=== PATIENT | female | born 1960 | race African-American/Black ===

== ENCOUNTER → 2017-05-19 | Day surgery (SDC) | payer OTHER ==
[~2017-05-19] MED LIST: HYDROmorphone 2 MG/ML VIAL IV; LIDOCAINE 1% PF 2 ML VIAL. ID; LIDOCAINE 2% PF Vial for OR 5 ML VIAL.; MORPHINE SULFATE 2 MG/ML DISP.SYRIN. IV; ONDANSETRON PF 4 MG/2 ML VIAL. IV; PROCHLORPERAZINE 10 MG/2 ML VIAL. IV; PROPOFOL 40 ML IV; fentaNYL PF VIAL 100 MCG/2 ML VIAL IV
[2017-05-19 08:10] LABS: POC GLUCOSE 135 mg/dL (70-99)
[2017-05-19] MEDS: IV RINGERS,LACTATED 1000ML 1,000 ML IV (08:15)
== END | disposition home or self-care (01) ==
LOC: ENDOS 07:43
DX: Z09 Encounter for follow-up examination after completed treatment for conditions other than malignant neoplasm (principal); Z86.010 Personal history of colon polyps; K62.1 Rectal polyp; K64.0 First degree hemorrhoids; I10 Essential (primary) hypertension; F17.210 Nicotine dependence, cigarettes, uncomplicated; E78.5 Hyperlipidemia, unspecified; M19.90 Unspecified osteoarthritis, unspecified site; E11.9 Type 2 diabetes mellitus without complications; Z79.899 Other long term (current) drug therapy; Z72.89 Other problems related to lifestyle; Z98.890 Other specified postprocedural states; Z98.51 Tubal ligation status; Z82.3 Family history of stroke; Z83.3 Family history of diabetes mellitus; Z80.0 Family history of malignant neoplasm of digestive organs; Z82.49 Family history of ischemic heart disease and other diseases of the circulatory system
CPT/HCPCS: 45380; 82962; 88305; J2704

== ENCOUNTER 2017-12-13 07:53 | Emergency (ER) | payer OTHER ==
[~2017-12-13] VITALS: Ht 170.2 cm; Wt 95.3 kg
[~2017-12-13 07:53] MED LIST changes: +ACET-1574 PO; +AMLO5TAB2 PO; +CYCL10TA2 PO; +DOXA2TAB2 PO; +GLIM2TAB2 PO; +HYDR-963 PO; -HYDROmorphone 2 MG/ML VIAL IV; +IBUP-1060 PO; +INDO50CA5 PO; -LIDOCAINE 1% PF 2 ML VIAL. ID; -LIDOCAINE 2% PF Vial for OR 5 ML VIAL.; +LISI1TAB5 PO; +METF100010 PO; +METF750T2 PO; -MORPHINE SULFATE 2 MG/ML DISP.SYRIN. IV; -ONDANSETRON PF 4 MG/2 ML VIAL. IV; +POLY17PO29 PO; -PROCHLORPERAZINE 10 MG/2 ML VIAL. IV; -PROPOFOL 40 ML IV; +SIMV20TA3 PO; +UMEC1DIS IH; -fentaNYL PF VIAL 100 MCG/2 ML VIAL IV
[2017-12-13 08:02] VITALS: BP 184/107
[2017-12-13] MEDS ORDERED: HYDR-971 PO (08:22)
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
[2017-12-13] MEDS ORDERED: NEOMY/BACITR/POLYMYXIN OINT PACKET. TP ONE (08:30)
== END 2017-12-13 08:45 | disposition home or self-care (01) ==
LOC: ER 07:53
DX: T23.122A Burn of first degree of single left finger (nail) except thumb, initial encounter (principal); X08.8XXA Exposure to other specified smoke, fire and flames, initial encounter; Y93.89 Activity, other specified; Y99.8 Other external cause status; Y92.89 Other specified places as the place of occurrence of the external cause
CPT/HCPCS: 16020; 99284-25

== ENCOUNTER 2018-04-25 23:06 | Emergency (ER) | payer OTHER ==
[~2018-04-25] VITALS: Ht 172.7 cm; Wt 95.3 kg
[~2018-04-25 23:06] MED LIST changes: -AMLO5TAB2 PO; +AMLO5TAB7 PO; +HYDR-3135 PO; +HYDR-3164 PO; -HYDR-963 PO
[2018-04-25 23:14] VITALS: BP 187/93
[2018-04-25] MEDS ORDERED: HYDROcodone/APAP 5/325MG 1 TAB TABLET PO ONE (23:45)
[2018-04-25] MEDS ORDERED: ASPIRIN 325 MG TABLET PO ONE (23:45)
[2018-04-25] MEDS ORDERED: CYCLOBENZAPRINE 10 MG TABLET. PO ONE (23:45)
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
[2018-04-26 00:07] LABS: BILIRUBIN,URINE NEGATIVE (NEG); CLARITY,URINE CLEAR; COLOR,URINE YELLOW; NITRITE,URINE NEGATIVE (NEG); PROTEIN,URINE NEGATIVE (NEG-TRACE)
[2018-04-26 00:13] LABS: CREATININE ISTAT 0.5 mg/dL (0.5-1.4); HEMOGLOBIN ISTAT 15.6 g/dL (12-15); ION CA ISTAT 1.15 mmol/L (1.13-1.32); POTASSIUM ISTAT 3.3 mmol/L (3.5-5.0)
[2018-04-26 00:14] LABS: BACTERIA,URINE 0 /HPF (0-FEW); RBC,URINE OCC /HPF (0-2)
[2018-04-26 00:15] LABS: SQUAMOUS EPITHELIAL CELL,UR OCC /LPF
[2018-04-26] MEDS ORDERED: PRED50TA PO (00:27)
[2018-04-26] MEDS ORDERED: DICL50TA4 PO (00:27)
[2018-04-26] MEDS ORDERED: CYCL10TA2 PO (00:27)
[2018-04-26] MEDS ORDERED: VENTOLIN HFA8 G1 IH (00:27)
--- NOTE | 2018-04-26 05:27 | EKG ---
[facility] [address] [place] [address] Test Date: 2018-04-25 Test Time: 23:39:15 Pat Name: KATHY ARDON Department: Room: Gender: F Intensive Care Nurse: : 1960 Requested By: HERBERT KUO Order Number: [id number] Reading MD: Measurements Intervals [place] Rate: 76 P: 31 HI: 156 QRS: 64 QRSD: 82 T: 65 QT: 380 QTc: 427 Interpretive Statements SINUS RHYTHM QRS(T) CONTOUR ABNORMALITY CONSIDER ANTEROSEPTAL MYOCARDIAL DAMAGE POSSIBLY ABNORMAL ECG RI6.01 No previous ECG available for comparison
--- NOTE | 2018-04-26 09:02 | RAD ---
CHEST PA LATERAL History: LEFT RIB PAIN. Comparison: June 17, 2015 images without report Heart size: Unchanged, within normal limits. Georgette/mediastinum: Stable in appearance. Lungs: Low lung volumes, are similar to prior study. Mild interstitial markings in both lungs also stable. No evidence of consolidating infiltrate. No pneumothorax. Pleura: Blunting of right costophrenic angle is redemonstrated, likely due to chronic scarring, appears similar. No definite pleural effusion. Pneumothorax: None visualized Bones: Regional skeleton appears grossly intact. Miscellaneous: None Impression: Stable appearance of the chest, no acute consolidating infiltrate. Electronically signed by: Tacho Santa MD (04/26/2018 8:59 AM) [id number]
== END 2018-04-26 00:35 | disposition home or self-care (01) ==
LOC: ER 23:06
DX: J40 Bronchitis, not specified as acute or chronic (principal); R09.1 Pleurisy; I10 Essential (primary) hypertension; J44.9 Chronic obstructive pulmonary disease, unspecified; E78.00 Pure hypercholesterolemia, unspecified; E11.9 Type 2 diabetes mellitus without complications; F17.200 Nicotine dependence, unspecified, uncomplicated
CPT/HCPCS: 71046; 80047; 81001; 84484; 85014; 85018; 93005; 99284-25

== ENCOUNTER 2021-04-03 14:23 | Emergency (ER) | payer SELFPAY ==
[~2021-04-03] VITALS: Ht 170.2 cm; Wt 93.0 kg
[~2021-04-03 14:23] MED LIST changes: -ACET-1574 PO; +ACET-1871 PO; +AMLO-186 PO; -AMLO5TAB7 PO; +CYCL10TA19 PO; -CYCL10TA2 PO; +DICL50TA4 PO; -GLIM2TAB2 PO; +GLIM2TAB7 PO; +INDO50CA15 PO; -INDO50CA5 PO; +LISI1TAB37 PO; -LISI1TAB5 PO; -METF750T2 PO; +METF750T39 PO; +PRED50TA PO; +SIMV20TA18 PO; -SIMV20TA3 PO; +VENTOLIN HFA8 G1 IH
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
[2021-04-03 16:41] VITALS: BP 163/90
--- NOTE | 2021-04-03 16:52 | RAD ---
EXAM: Left shoulder, 3 views; chest and left ribs, 3 views. HISTORY: Pain. Fall. COMPARISON: 04/26/2018. FINDINGS: Left shoulder: 3 views of the shoulder obtained. There is no acute fracture, dislocation or subluxati on. There is mild degenerative spurring and subchondral sclerosis and subchondral cyst formation invo lving the glenoid. There is also degenerative change at the rotator cuff insertion on the greater tub erosity. Chest and left ribs: A frontal view of the chest and 3 views left ribs are obtained. There is stable elevation of the right hemidiaphragm and suspected right pleural thickening. There is stable cardiac silhouette. There is no infiltrate. No displaced fracture is seen. IMPRESSION: 1. No acute pulmonary or osseous finding. Stable elevation of the right hemidiaphragm and right pleur al thickening. Stable cardiomegaly. 2. Mild osteoarthritis of the left shoulder. Electronically signed by: Kenia Armas MD (04/03/2021 4:50 PM) [id number]
[2021-04-03] MEDS ORDERED: ORPH100T PO (17:04)
[2021-04-03] MEDS ORDERED: KETOROLAC 30 MG/ML VIAL. IM ONE (17:30)
== END 2021-04-03 17:18 | disposition home or self-care (01) ==
LOC: ER 14:23
DX: S20.212A Contusion of left front wall of thorax, initial encounter (principal); S40.012A Contusion of left shoulder, initial encounter; J44.9 Chronic obstructive pulmonary disease, unspecified; E11.9 Type 2 diabetes mellitus without complications; I10 Essential (primary) hypertension; E78.00 Pure hypercholesterolemia, unspecified; F17.200 Nicotine dependence, unspecified, uncomplicated; W18.09XA Striking against other object with subsequent fall, initial encounter; Y93.89 Activity, other specified; Y92.89 Other specified places as the place of occurrence of the external cause; Y99.8 Other external cause status
CPT/HCPCS: 71101; 73030; 96372; 99284; J1885